=== PATIENT | female | born 1970 | race Caucasian/White ===

== ENCOUNTER 2019-02-20 19:23 | Emergency (ER) | payer BC ==
[2019-02-20] MEDS ORDERED: MORPHINE SULFATE 5 MG/ML VIAL IVP ONE (19:34)
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
[2019-02-20] MEDS ORDERED: HYDROCODONE/APAP 5/325MG TABLET PO ONE (20:05)
== END 2019-02-20 20:40 | disposition home or self-care (01) ==
LOC: ER 19:23
DX: S32.592A Other specified fracture of left pubis, initial encounter for closed fracture (principal); X58.XXXA Exposure to other specified factors, initial encounter; Y93.9 Activity, unspecified; Y92.9 Unspecified place or not applicable; Y99.9 Unspecified external cause status; F17.210 Nicotine dependence, cigarettes, uncomplicated
CPT/HCPCS: 96374; 99284